=== PATIENT | female | born 1980 | race Caucasian/White ===

== ENCOUNTER → 2022-05-29 07:41 | Outpatient (CLI) | payer OTHER, MEDICAID, SELFPAY ==
--- NOTE | 2022-05-29 | DI.ECHO.S_ITS ---
[facility]---------+ [facility] +---------+ : : [address] : [address] [place] : : : : [id number] : : : : Phone: [phone]---------+ Echocardiogram Report + + :Name: AJAY HOLLAND Study Date: 05/29/2022 Height: 67 in : :[facility] ReadingLocation: Weight: 337 lb : : Gender: Female BSA: 2.5 m2 : :: 1980 Age: 41 yrs BP: 119/72 mmHg: :Reason For Study: DYSPNEA ON EXERTION : :Ordering Physician: CARY, : :RALPH Performed By: Griselda Casillas : :Referring: RALPH ELENA : + + Interpretation Summary 1) Normal left ventricular thickness, size, wall motion, and systolic function (EF 55-60%). 2) Normal right ventricular size and function. 3) No significant valvular abnormalities. 4) No prior Echo available for comparison. Procedure: A two-dimensional transthoracic echocardiogram with color flow and Doppler was performed. The study quality was technically difficult. There is no prior echocardiogram noted for this patient. A contrast injection of Definity was performed to improve assessment of LV function. The patient was in sinus rhythm with heart rates between 65-90 bpm during the exam. Left Ventricle: The left ventricle is normal in size. Left ventricular wall thickness is normal. The ejection fraction is estimated to be 55-60%. Left ventricular systolic function appears normal without focal wall motion abnormalities. Diastolic parameters suggest probable normal left ventricular diastolic function and normal filling pressures. Right Ventricle: The right ventricle is normal in size and function. Atria: The left atrial size is normal. Right atrial size is normal. There is no Doppler evidence for an interatrial shunt. Mitral Valve: The mitral valve is normal in structure and function. There is no mitral regurgitation noted. Aortic Valve: The aortic valve is trileaflet. The aortic valve opens well. There is no aortic valve stenosis. No aortic regurgitation is present. Tricuspid Valve: The tricuspid valve is normal in structure and function. There is mild tricuspid regurgitation. The right ventricular systolic pressure is estimated to be at least 20 mmHg based on an estimated right atrial pressure of 3 mm Hg. Pulmonic Valve: The pulmonic valve leaflets are thin and pliable; valve motion is normal. There is no pulmonic valvular regurgitation. Great Vessels: The aortic root is normal size. The dimensions of the ascending aorta are normal. The IVC is of normal diameter and collapses greater than 50% with a sniff. This suggests a low right atrial pressure of 3 mm Hg. Pericardium/ Pleura There is no pericardial effusion. There is an anterior echo-free space consistent with a fat pad. There is no pleural effusion. MMode/2D Measurements & Calculations LVIDd: 4.3 cm LVOT diam: 2.3 cm LVIDs: 2.7 cm Ao root diam: 3.2 cm FS: 37.0 % asc Aorta Diam: 2.8 cm IVSd: 0.83 cm Ao Arch Diam (Prox Trans): 2.7 cm LVPWd: 1.1 cm LV bess. diameter/BSA (cm/m^2): 1.7 LV sys. diameter/BSA (cm/m^2): 1.1 LA A2 area: 24.0 cm2 RA long axis: 5.3 cm LA A4 area: 19.3 cm2 RA area: 16.2 cm2 LA length (vol): 6.0 cm RA vol: 42.0 ml LA vol: 65.8 ml RA : 16.6 ml/m2 LA vol index: 26.1 ml/m2 IVC diam: 1.7 cm RVD1 (basal): 3.1 cm RVD2 (mid): 2.6 cm TAPSE: 1.8 cm Doppler Measurements & Calculations Ao V2 max: 127.0 cm/sec LVOT Max Mino: 77.6 cm/sec Ao V2 mean: 88.1 cm/sec LV V1 max P.4 mmHg Ao max P.5 mmHg LV V1 VTI: 17.0 cm Ao mean P.6 mmHg ORESTES(I,D): 2.6 cm2 Ao V2 VTI: 27.2 cm ORESTES(V,D): 2.5 cm2 sev ratio: 0.63 ORESTES indexed to BSA (cm^2/m^2): 1.0 MV E max mino: 92.0 cm/sec TR max mino: 206.1 cm/sec MV A max mino: 1.9 cm/sec TR max P.0 mmHg MV E/A: 48.7 PA V2 max: 107.2 cm/sec Med Peak E' Mino: 19.2 cm/sec PA V2 mean: 73.8 cm/sec E/E' med: 4.8 PA mean P.5 mmHg Lat Peak E' Mino: 18.9 cm/sec PA pr(Accel): 51.6 mmHg E/E' lat: 4.9 E/e' average: 4.8 MV dec time: 0.14 sec SV(LVOT): 70.9 ml Reading Physician:02:48 PM
--- NOTE | 2022-05-30 02:00 | DI.NM.S_ITS ---
DATE OF SERVICE: 05/29/2022 PROCEDURE: Exercise stress test. INDICATIONS: Chest pain, palpitation, diabetes mellitus, hypertension. CARDIAC STRESS: Patient underwent exercise stress test under the supervision of an attending staff as per standard Viktor protocol. She walked on Viktor protocol for 5 minutes and 10 seconds, achieved maximum heart rate of 190, which was 106% of target heart rate. Baseline blood pressure 120/76 and peak blood pressure 174/68 mmHg. Resting heart rate 91 beats per minute. MÓNICA positive 40%. 5.3 METS of workload. The patient felt significant dyspnea. No chest pain. Baseline rhythm sinus. During stress, no convincing ischemic changes seen. No significant arrhythmias seen. There was enhanced chronotropic response. At around 2 minutes and 50 seconds into the exercise, heart rate went up to 162 beats per minute. Late recovery. Even 9 minutes in recovery, heart rate was 114 beats per minute. CONCLUSION: 1. Exercise stress test is negative for inducible ischemia. 2. Enhanced chronotropic response, as well as late recovery. 3. Normal blood pressure response. 4. Significant shortness of breath without any chest pain or ischemic electrocardiographic changes or significant arrhythmias. Markedly diminished exercise tolerance. Checo Franco - BRITNI/ha/giovany doc#: [id number]/job#: [id number] dd: 05/29/2022 16:54:00 dt: 05/30/2022 01:47:00 DICTATING /COPIES TO: Yenny Fernandez MD COPIES MNE: STEFFEN;
== END ==
PROVIDERS: PCP Registered Nurse; Referring Provider Internal Medicine Cardiovascular Disease; Visit Provider Internal Medicine Cardiovascular Disease
DX: I07.1 Rheumatic tricuspid insufficiency (principal); R06.09 Other forms of dyspnea
CPT/HCPCS: 93017; C8929; Q9957